=== PATIENT | female | born 2000 | race Two or more races ===

== ENCOUNTER 2025-02-12 15:57 | Emergency (ER) | payer OTHER ==
[~2025-02-12] VITALS: Ht 170.2 cm; Wt 55.3 kg
[2025-02-12] MEDS ORDERED: VASOTEC2.5 MG PO (16:58)
[2025-02-12] MEDS ORDERED: INSULIN SYRING1 EA29 SUBCUTANEO (16:59)
[2025-02-12] MEDS ORDERED: FAMOtidine 10 MG/ML (4ML VIAL) IV ONE (17:15)
[2025-02-12] MEDS ORDERED: 0.9 % SODIUM CHLORIDE 1,000 ML IV ONE (17:15)
[2025-02-12] MEDS ORDERED: KETOROLAC TROMETHAMINE 60 MG VIAL IM ONE ×3 (17:15→18:20)
[2025-02-12] MEDS ORDERED: TAMSULOSIN HCL 0.4 MG CAP PO ONE ×2 (17:15→17:27)
[2025-02-12] MEDS ORDERED: CEFTRIAXONE SODIUM 1,000 MG VIAL IV ONE (17:15)
[2025-02-12] MEDS ORDERED: PHENAZOPYRIDINE HCL 100 MG TABLET PO ONE ×2 (17:15→17:27)
[2025-02-12] MEDS ORDERED: CEFTRIAXONE SODIUM 1,000 MG VIAL ONE (17:27)
[2025-02-12] MEDS ORDERED: FAMOTIDINE/PF 20 MG/2 ML VIAL ONE (17:28)
[2025-02-12 18:25] LABS: HEMATOCRIT 39.8 % (36.0-45.00); HEMOGLOBIN 13.8 g/dL (12.0-15.00); MEAN CELL VOLUME 90.5 fL (80.00-100.00); MEAN CORPUSCULAR HEMOGLOBIN 31.5 pg (27.00-32.0); MEAN CORPUSCULAR HGB CONC 34.8 g/dl (32.0-36.0); PLATELET COUNT 267 K/uL (150-450); RED CELL DISTRIBUTION WIDTH 12.5 % (11.5-14.5)
[2025-02-12 18:47] LABS: PH,URINE 7.5 (5.0-8.0); URINE APPEARANCE Clear; URINE BACTERIA 2554.2 uL (0.0-1933); URINE BILIRRUBIN Negative (NEGATIVE); URINE BLOOD NHT; URINE COLOR Yellow; URINE EPITHELIAL CELLS 34.5 uL (0.0-38.8); URINE KETONE Negative (NEGATIVE); URINE LEUKOCYTE Moderate; URINE NITRATE Negative; URINE PROTEIN Trace (NEGATIVE); URINE WBC 699.6 uL (0.0-23.2)
[2025-02-12 18:50] LABS: URINE GLUCOSE 250 MG/DL (NEGATIVE)
[2025-02-12 19:06] LABS: ALBUMIN 4.7 gm/dL (3.4-5.0); ALKALINE PHOSPHATASE 85 U/L (50-136); ALT/SGPT 15 U/L (12-78); ANION GAP 12 (10.0-20.0); AST/SGOT 11 U/L (15-37); BILIRUBIN TOTAL 0.62 mg/dL (0.3-1.2); BLOOD UREA NITROGEN 11 mg/dL (7-18); BUN CREA RATIO 13 (7.0-25.0); CALCIUM 9.6 mg/dL (8.5-10.1); CARBON DIOXIDE 28 mEq/L (21-32); CHLORIDE 105 mmol/L (98-107); CREATININE SERUM 0.82 mg/dL (0.55-1.02); GFR 87.17; GLOBULINA 3.7 G/DL (2.4-3.5); GLUCOSE FASTING 199 mg/dL (65-100); OSMOLALITY SERUM 286 MOSM/KG (275-295); POTASSIUM 3.86 mEq/L (3.5-5.1); SODIUM 141 mmol/L (136-145); TOTAL PROTEIN 8.4 gm/dL (6.4-8.2)
[2025-02-12 19:07] LABS: HCG QUANTITATIVE < 1 mUI/mL (1-3)
[2025-02-12] MEDS ORDERED: PEPCID AC20 MG PO (21:49)
[2025-02-12] MEDS ORDERED: TAMS0.4C PO (21:49)
[2025-02-12] MEDS ORDERED: BACTRIM DS TAB1 EACH PO (21:49)
[2025-02-12] MEDS ORDERED: PYRIDIUM DS200 MG PO (21:49)
[2025-02-12] MEDS ORDERED: KETO10TA2 PO (21:49)
== END 2025-02-12 22:00 | disposition home or self-care (01) ==
LOC: ER 15:58
PROVIDERS: General Practice
DX: R10.9 Unspecified abdominal pain (principal); R30.0 Dysuria; E11.9 Type 2 diabetes mellitus without complications; Z79.84 Long term (current) use of oral hypoglycemic drugs

== ENCOUNTER 2025-04-04 17:20 | Emergency (ER) | payer OTHER ==
[~2025-04-04] VITALS: Ht 172.7 cm; Wt 55.3 kg
[~2025-04-04 17:20] MED LIST: BACTRIM DS TAB1 EACH PO; INSULIN SYRING1 EA29 SUBCUTANEO; KETO10TA2 PO; PEPCID AC20 MG PO; PYRIDIUM DS200 MG PO; TAMS0.4C PO; VASOTEC2.5 MG PO
[2025-04-04] MEDS ORDERED: ENALAPRIL MALE2.5 MG PO (18:06)
[2025-04-04] MEDS ORDERED: HORIZANT300 MG (18:07)
[2025-04-04] MEDS ORDERED: TENORMIN25 MG (18:07)
[2025-04-04] MEDS ORDERED: BENZONATATE 100 MG CAPSULE PO STA (18:44)
[2025-04-04 19:40] LABS: BASO % 0.9 % (0.1-1.2); EOS # 0.14 (0.04-0.54); EOS % 1.7 % (0.7-7.0); HEMATOCRIT 39.2 % (34.1-44.9); HEMOGLOBIN 13.5 g/dL (11.2-15.7); LYMPH # 2.62 (1.18-3.74); LYMPH % 31.9 % (19.3-53.1); MEAN CORPUSCULAR HEMOGLOBIN 30.4 pg (25.6-32.2); MONO # 0.58 (0.24-0.82); MONO % 7.1 % (4.7-12.5); NEUT # 4.79 (1.56-6.13); NEUT % 58.3 % (34.0-71.1); PLATELET COUNT 349 K/uL (163-369); RED BLOOD COUNT 4.44 M/uL (3.93-5.22); RED CELL DISTRIBUTION WIDTH 11.9 % (11.6-14.4)
[2025-04-04 20:10] LABS: COVID-19 AG NEGATIVE (NEGATIVE)
[2025-04-04 20:11] LABS: ALBUMIN 4.5 gm/dL (3.4-5.0); BILIRUBIN TOTAL 0.48 mg/dL (0.3-1.2); CREATININE SERUM 0.86 mg/dL (0.55-1.02); GFR 82.51; GLOBULINA 3.2 G/DL (2.4-3.5); INFLUENZA A AG NEGATIVE (NEGATIVE); INFLUENZA B AG NEGATIVE (NEGATIVE); POTASSIUM 3.3 mEq/L (3.5-5.1); TOTAL PROTEIN 7.7 gm/dL (6.4-8.2)
[2025-04-04] MEDS ORDERED: FLONASE16 GM NASAL (20:54)
[2025-04-04] MEDS ORDERED: ZYRTEC10 MG PO (20:54)
== END 2025-04-04 21:52 | disposition home or self-care (01) ==
LOC: ER 18:11
PROVIDERS: General Practice
DX: J30.9 Allergic rhinitis, unspecified (principal); Z20.822 Contact with and (suspected) exposure to COVID-19; I10 Essential (primary) hypertension